=== PATIENT | male | born 1990 | race Asian ===

== ENCOUNTER 2019-03-11 08:26 | Outpatient (CLI) | payer OTHER | END 2019-03-11 21:09 | disposition home or self-care (01) | LOC: MRD 08:26 | DX: Z12.2 Encounter for screening for malignant neoplasm of respiratory organs (principal) | CPT/HCPCS: 71045 ==

== ENCOUNTER 2019-05-08 09:04 | Outpatient (CLI) | payer OTHER ==
[2019-05-08 09:32] LABS: BASOPHILS # (AUTO) 0.1 K/uL (0.00-0.22); BASOPHILS % (AUTO) 0.9 % (0.0-2.0); EOSINOPHILS # (AUTO) 0.2 K/uL (0-0.4); EOSINOPHILS % (AUTO) 2.9 % (0.0-4.0); HEMATOCRIT 46.4 % (36-52); HEMOGLOBIN 16.2 g/dL (12.0-18.0); LYMPHOCYTES # (AUTO) 2.4 K/uL (2.0-11.5); LYMPHOCYTES % (AUTO) 34.2 % (20.5-51.1); MEAN CORPUSCULAR HEMOGLOBIN 31 pg (27-31); MEAN CORPUSCULAR HGB CONC 35 g/dL (33-37); MEAN CORPUSCULAR VOLUME 87.5 fL (80-94); MONOCYTES # (AUTO) 0.4 K/uL (0.8-1.0); PLATELET COUNT (AUTO) 298 K/uL (140-450); RED CELL DISTRIBUTION WIDTH 12.2 % (11.6-13.7); WHITE BLOOD COUNT (AUTO) 7.1 K/uL (4.8-10.8)
[2019-05-08 10:54] LABS: ANION GAP 14.9 (8-16); CHOL/HDL RATIO 7.6 (1-4.5); POTASSIUM 3.9 mmol/L (3.5-5.1); TOTAL BILIRUBIN 0.8 mg/dL (0.0-1.0)
[2019-05-08 11:15] LABS: THYROID STIMULATING HORMONE 2.43 uIU/mL (0.34-3.74)
== END 2019-05-08 22:00 | disposition home or self-care (01) ==
LOC: MLB 09:04
DX: E11.9 Type 2 diabetes mellitus without complications (principal); E78.5 Hyperlipidemia, unspecified; R00.2 Palpitations; R53.83 Other fatigue
CPT/HCPCS: 36415; 80053; 83036; 84443; 85025

== ENCOUNTER 2019-10-03 11:41 | Outpatient (CLI) | payer OTHER ==
[2019-10-03 13:06] LABS: BASOPHILS % (AUTO) 0.7 % (0.0-2.0); EOSINOPHILS # (AUTO) 0.1 K/uL (0-0.4); HEMATOCRIT 49.3 % (36-52); HEMOGLOBIN 16.7 g/dL (12.0-18.0); LYMPHOCYTES # (AUTO) 2.3 K/uL (2.0-11.5); LYMPHOCYTES % (AUTO) 37.2 % (20.5-51.1); MEAN CORPUSCULAR HEMOGLOBIN 30 pg (27-31); MEAN CORPUSCULAR HGB CONC 34 g/dL (33-37); MEAN CORPUSCULAR VOLUME 88.4 fL (80-94); MONOCYTES # (AUTO) 0.4 K/uL (0.8-1.0); NEUTROPHILS # (AUTO) 3.3 K/uL (1.8-7.7); NEUTROPHILS % (AUTO) 53.1 % (42.2-75.2); PLATELET COUNT (AUTO) 289 K/uL (140-450); RED BLOOD CELL COUNT(AUTO) 5.57 MIL/uL (4.20-6.10); RED CELL DISTRIBUTION WIDTH 12.6 % (11.6-13.7); WHITE BLOOD COUNT (AUTO) 6.2 K/uL (4.8-10.8)
[2019-10-03 14:16] LABS: ANION GAP 17.3 (8-16); CARBON DIOXIDE 25.4 mmol/L (21-32); CREATININE 0.9 mg/dL (0.6-1.3); POTASSIUM 3.7 mmol/L (3.5-5.1); THYROID STIMULATING HORMONE 1.78 uIU/mL (0.34-3.74); TOTAL BILIRUBIN 1.6 mg/dL (0.0-1.0)
[2019-10-03 14:36] LABS: ALBUMIN 3.6 g/dL (3.4-5.0)
[2019-10-03 14:40] LABS: CHOL/HDL RATIO 5.3 (1-4.5); FREE T4 (FREE THYROXINE) 1.02 ng/dL (0.76-1.46)
[2019-10-04 13:31] LABS: RAPID PLASMA REAGIN NON-REACTIVE (Non Reactiv)
[2019-10-04 15:08] LABS: ANTI-NUCLEAR ANTIBODY,DIRECT Negative (Negative)
== END 2019-10-03 20:54 | disposition home or self-care (01) ==
LOC: MLB 11:41
DX: L50.1 Idiopathic urticaria (principal)
CPT/HCPCS: 36415; 80053; 83036; 84439; 84443; 85025; 86038; 86160; 86430; 86592; 86702